=== PATIENT | female | born 1990 ===

== ENCOUNTER 2019-12-18 08:27 | Inpatient (IN) | payer SELFPAY ==
[2019-12-18] MEDS ORDERED: Methylergonovine 0.2 MG/1 ML Amp IM PRN (11:25)
[2019-12-18] MEDS ORDERED: Butorphanol 1 MG/ML SDV IVPUSH PRN (11:25)
[2019-12-18] MEDS ORDERED: Sodium Chloride 0.9% 10 ML SDV IV PRN (11:25)
[2019-12-18] MEDS ORDERED: Sodium Chloride 0.9% 10 ML Syringe FLUSH PRN (11:25)
[2019-12-18] MEDS ORDERED: Misoprostol 200 MCG Tab PO PRN (11:25)
[2019-12-18] MEDS ORDERED: Tranexamic Acid 1,000 MG in Sodium Chloride 0.9% 100 ML IV PRN (11:25)
[2019-12-18] MEDS ORDERED: Lidocaine 1% 50 ML MDV INJECT PRN (11:25)
[2019-12-18] MEDS ORDERED: Water For Irrigation,Sterile 1,000 ML Container IRR PRN (11:25)
[2019-12-18] MEDS ORDERED: Carboprost Tromethamine 250 MCG/1 ML Amp IM PRN (11:25)
[2019-12-18] MEDS ORDERED: Nalbuphine 10 MG/1 ML Vial IVPUSH PRN (11:25)
[2019-12-18] MEDS ORDERED: Terbutaline 1 MG/ML SDV SUBCUT PRN (11:25)
[2019-12-18] MEDS ORDERED: Sodium Chloride 0.9% 2.5 ML Syringe FLUSH PRN (11:25)
[2019-12-18] MEDS ORDERED: Oxytocin/0.9 % Sodium Chloride 30 UNIT/500 ML BAG IV SCH ×2 (11:30)
[2019-12-18] MEDS ORDERED: Misoprostol 25 MCG (1/4 of 100 MCG) Tab PO PRN (12:00)
[2019-12-18] MEDS: Lactated Ringers 1,000 ML IV SCH ×3 (12:32→19:33)
[2019-12-18] MEDS ORDERED: Ropivacaine 0.2% PF 2 MG/ML 20 ML SDV ONE (18:34)
[2019-12-18] MEDS ORDERED: fentaNYL 100 MCG/2 ML SDV ONE (18:34)
[2019-12-18] MEDS ORDERED: Ropivacaine HCl/PF 100 ML ONE (18:34)
[2019-12-18] MEDS ORDERED: Oxytocin/0.9 % Sodium Chloride 30 UNIT/500 ML BAG ONE (19:31)
--- NOTE | 2019-12-18 20:39 | PCM.PREANE ---
Preanesthetic Assessment - Procedure Proposed Procedure: MARY - Anesthesia/Transfusion/Family Hx Anesthesia History: Prior Anesthesia Without Reaction Family History of Anesthesia Reaction: No Transfusion History: No Prior Transfusion(s) Intubation History: Unknown - Review of Systems General: No Symptoms Pulmonary: No Symptoms Cardiovascular: No Symptoms Gastrointestinal: No Symptoms Neurological: No Symptoms Other: Reports: None - Physical Assessment NPO Status Date: 12/18/19 NPO Status Time: 18:00 (Clear Liquids) Height: 1.6 m Weight: 86.183 kg ASA Class: 2 Mental Status: Alert & Oriented x3 Airway Class: Mallampati = 2 Dentition: Reports: Normal Dentition Thyro-Mental Finger Breadths: 3 Mouth Opening Finger Breadths: 3 ROM/Head Extension: Full Lungs: Clear to Auscultation Cardiovascular: Regular Rate - Lab Values: Laboratory Last Values WBC 10.35 K/uL (4.0-11.0) 12/18/19 11:50 RBC 5.11 M/uL (4.30-5.90) 12/18/19 11:50 Hgb 15.4 g/dL (12.0-16.0) 12/18/19 11:50 Hct 45.9 % (36.0-46.0) 12/18/19 11:50 MCV 89.8 fL (80.0-98.0) 12/18/19 11:50 MCH 30.1 pg (27.0-32.0) 12/18/19 11:50 MCHC 33.6 g/dL (31.0-37.0) 12/18/19 11:50 RDW Std Deviation 46.6 fl (28.0-62.0) 12/18/19 11:50 RDW Coeff of Krista 14 % (11.0-15.0) 12/18/19 11:50 Plt Count 221 K/uL (150-400) 12/18/19 11:50 MPV 10.10 fL (7.40-12.00) 12/18/19 11:50 Nucleated RBC % 0.0 /100WBC 12/18/19 11:50 Nucleated RBCs # 0 K/uL 12/18/19 11:50 Urine Color YELLOW 12/18/19 08:45 Urine Appearance CLEAR 12/18/19 08:45 Urine pH 7.0 (5.0-8.0) 12/18/19 08:45 Ur Specific Accident 1.015 (1.001-1.035) 12/18/19 08:45 Urine Protein NEGATIVE mg/dL (NEGATIVE) 12/18/19 08:45 Urine Glucose (UA) NEGATIVE mg/dL (NEGATIVE) 12/18/19 08:45 Urine Ketones NEGATIVE mg/dL (NEGATIVE) 12/18/19 08:45 Urine Occult Blood NEGATIVE (NEGATIVE) 12/18/19 08:45 Urine Nitrite NEGATIVE (NEGATIVE) 12/18/19 08:45 Urine Bilirubin NEGATIVE (NEGATIVE) 12/18/19 08:45 Urine Urobilinogen 0.2 EU/dL (<2.0) 12/18/19 08:45 Ur Leukocyte Esterase NEGATIVE (NEGATIVE) 12/18/19 08:45 Urine RBC NONE SEEN (0-2/HPF) 12/18/19 08:45 Urine WBC 0-2 (0-5/HPF) 12/18/19 08:45 Ur Epithelial Cells FEW (NONE-FEW) 12/18/19 08:45 Urine Bacteria NOT SEEN (NEGATIVE) 12/18/19 08:45 Membrane Rupture POSITIVE 12/18/19 08:48 Blood Type O POSITIVE 12/18/19 11:50 Antibody Screen NEGATIVE 12/18/19 11:50 - Allergies Allergies/Adverse Reactions: Allergies Allergy/AdvReac Type Severity Reaction Status Date / Time Penicillins Allergy Rash Verified 12/18/19 08:57 - Blood Blood Available: No Product(s) Available: None - Anesthesia Plan Pre-Op Medication Ordered: None - Acknowledgements Anesthesia Type Planned: Epidural Pt an Appropriate Candidate for the Planned Anesthesia: No Alternatives and Risks of Anesthesia Discussed w Pt/Guardian: No Pt/Guardian Understands and Agrees with Anesthesia Plan: No Additional Comments: for MARY. MARY in past. Discussed, ? answered, permit signed, wishes to proceed. Acceptable Candidate. 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: Neurological History: Reports: Migraines Psychiatric History: Reports: Anxiety, Depression Endocrine/Metabolic History: Reports: Obesity/BMI 30+, Other (See Below) Other Endocrine/Metabolic History: Hyperactive thyroid during first trimester, resolved in second trimester - Infectious Disease History Infectious Disease History: Reports: Chicken Pox, Human Papilloma Virus (HPV) - SUBSTANCE USE Smoking Status *Q: Former Smoker Tobacco Use Within Last Twelve Months: No Second Hand Smoke Exposure: No Date of Last Drink: 12/04/19 Recreational Drug Use History: No - HOME MEDS Home Medications: Home Meds Pnv No.95/Ferrous Fum/Folic AC [ Multivitamin Tablet] 1 each PO DAILY [History] - CURRENT (IN HOUSE) MEDS Current Meds: Current Medications Butorphanol Tartrate (Stadol) 1 mg IVPUSH Q1H PRN PRN Reason: Pain Last Admin: 12/18/19 18:07 Dose: 1 mg Carboprost Tromethamine (Hemabate Ds) 250 mcg IM ASDIRECTED PRN PRN Reason: Post Hemorrhage Lactated Ringer's (Ringers, Lactated) 1,000 mls @ 150 mls/hr IV ASDIRECTED KRYSTYNA Last Admin: 12/18/19 19:33 Dose: 150 mls/hr Oxytocin/Sodium Chloride (Oxytocin 30 Unit/500 Ml-Ns) 30 unit in 500 mls @ 500 mls/hr IV ASDIRECTED KRYSTYNA Oxytocin/Sodium Chloride (Oxytocin 30 Unit/500 Ml-Ns) 30 unit in 500 mls @ 2 mls/hr IV TITRATE KRYSTYNA; Protocol Tranexamic Acid 1,000 mg/ (Sodium Chloride) 110 mls @ 660 mls/hr IV ONETIME PRN PRN Reason: Bleeding Lidocaine HCl (Xylocaine 1%) 50 ml INJECT ONETIME PRN PRN Reason: Laceration repair Methylergonovine Maleate (Methergine) 0.2 mg IM ASDIRECTED PRN PRN Reason: Post Hemorrhage Misoprostol (Cytotec) 200 mcg PO ONETIME PRN PRN Reason: Post Hemorrhage Misoprostol (Cytotec) 25 mcg PO ONETIME PRN PRN Reason: Cervical Ripening Last Admin: 12/18/19 12:32 Dose: 25 mcg Nalbuphine HCl (Nubain) 10 mg IVPUSH Q1H PRN PRN Reason: Pain (severe 7-10) Sodium Chloride (Saline Flush) 10 ml FLUSH ASDIRECTED PRN PRN Reason: Keep Vein Open Sodium Chloride (Saline Flush) 2.5 ml FLUSH ASDIRECTED PRN PRN Reason: Keep Vein Open Sodium Chloride (Normal Saline) 10 ml IV ASDIRECTED PRN PRN Reason: IV Use Sterile Water (Sterile Water For Irrigation) 1,000 ml IRR ASDIRECTED PRN PRN Reason: delivery Terbutaline Sulfate (Brethine) 0.25 mg SUBCUT ASDIRECTED PRN PRN Reason: Tacysystole Discontinued Medications Fentanyl (Sublimaze) Confirm Administered Dose 100 mcg .ROUTE .STK-MED ONE Stop: 12/18/19 18:35 Ropivacaine (Naropin 0.2%) Confirm Administered Dose 100 mls @ as directed .ROUTE .STK-MED ONE Stop: 12/18/19 18:35 Oxytocin/Sodium Chloride (Oxytocin 30 Unit/500 Ml-Ns) Confirm Administered Dose 30 unit in 500 mls @ as directed .ROUTE .STK-MED ONE Stop: 12/18/19 19:32 Ropivacaine (Naropin 0.2%) Confirm Administered Dose 20 ml .ROUTE .STK-MED ONE Stop: 12/18/19 18:35
--- NOTE | 2019-12-18 20:43 | PCM.SN.2 ---
- Free Text/Narrative Note: Requested for MARY. Discussed, permit signed. Procedure @ L3-4 on first pass without issues. Excellent analgesia. Placed on infusion with bolus. Tolerated well. No problems noted.
[2019-12-18] MEDS ORDERED: Docusate Sodium 100 MG Cap PO PRN (22:07)
[2019-12-18] MEDS ORDERED: Lanolin 100% Cream 7 GM Tube TOP PRN (22:07)
[2019-12-18] MEDS ORDERED: Bisacodyl 10 MG Supp RECTAL PRN (22:07)
[2019-12-18] MEDS ORDERED: Aluminum Hydroxide/Magnesium Hydroxide/Simethicone Susp 30 ML Cup PO PRN (22:07)
[2019-12-18] MEDS ORDERED: Benzocaine/Menthol 20%-0.5% Spray 78 GM Cannister TOP PRN (22:07)
[2019-12-18] MEDS ORDERED: Acetaminophen 500 MG Tab PO PRN (22:07)
[2019-12-18] MEDS ORDERED: Ibuprofen 800 MG Tab PO PRN (22:07)
[2019-12-18] MEDS ORDERED: Witch Hazel Medicated Pads 40/Jar TOP PRN (22:07)
[2019-12-18] MEDS ORDERED: oxyCODONE 5 MG Tab PO PRN (22:07)
[2019-12-18] MEDS ORDERED: Ibuprofen 400 MG Tab PO PRN (22:07)
--- NOTE | 2019-12-18 22:14 | PCM.OPNOTE ---
- General Post-Op/Procedure Note Date of Surgery/Procedure: 12/18/19 Operative Procedure(s): /IP Findings: Viable female APGARs 8, 9 weight 3340 gm. Spontaneous delivery intact placenta with 3V cord Pre Op Diagnosis: 37/3 week IUP. SROM Post-Op Diagnosis: Same Anesthesia Technique: Epidural Primary Surgeon: Kandi Armstrong EBL in mLs: 250 Complications: none known Condition: Stable Free Text/Narrative:: Dictation [id number]
--- NOTE | 2019-12-18 23:11 | OR ---
SURGEON: Kandi Armstrong M.D. DATE OF PROCEDURE: 12/18/2019 PREOPERATIVE DIAGNOSES: 1. A 37-3/7 weeks intrauterine . 2. Spontaneous rupture of membranes. POSTOPERATIVE DIAGNOSES: 1. A 37-3/7 weeks intrauterine . 2. Spontaneous rupture of membranes. PROCEDURE: Spontaneous vaginal delivery, intact perineum. ANESTHESIA: Epidural. ESTIMATED BLOOD LOSS: 250 mL. COMPLICATIONS: None known. FINDINGS: Viable female. scores 8 at 1 minute, 9 at 5 minutes. Weight of 3340 g. Spontaneous delivery, intact placenta, 3-vessel cord. DISPOSITION: to nursery. Mom in LDRP. PROCEDURE DETAILS: Sally is a 29-year-old G2, P1 at 37-3/7 weeks' gestational age, who presented on the morning of 12/18/2019 with leakage of fluid. She was found to be spontaneously ruptured. Clear fluid noted. Group B beta strep negative. She is admitted. Routine labs were drawn with monitoring. She began progressing in the early afternoon hours, became increasingly uncomfortable, was found to be 5 cm shortly after approximately 6 p.m. and underwent regional anesthesia in the form of epidural. She became more comfortable and continued to progress thereafter. Shortly after 8 p.m., she was found to be 9 cm and within the hour progressed to complete, 100% effaced, +1 station. I was called for delivery. Upon my arrival, the patient was placed in modified dorsal lithotomy position, was prepped and draped in the usual aseptic manner. Began pushing efforts, pushed readily to a +3 station. Continued with pushing and delivered the 's head atraumatically spontaneously, followed by anterior shoulder, posterior shoulder, remainder of body without difficulty. The infant's oropharynx and nares were bulb suctioned. Infant was handed off to her mother with attending nursing staff at her side. After a delay, cord was clamped x2 and cut. Cord arterial, cord venous, cord blood sampling was obtained. Light pressure was applied while the placenta was delivered spontaneously intact. Vigorous fundal uterine massage was then applied while 30 units of Pitocin was delivered in 500 mL of IV fluid. Upon inspection of cervix, vaginal sidewall, and perineum, these were found to be intact. Uterus remained firm. Sponge count, instrument count is correct. The patient remained in LDRP and to nursery. SOLBSAR / CLAU /[id number]
[2019-12-19] MEDS: Acetaminophen 500 MG Tab PO PRN ×2 (04:14→13:07)
--- NOTE | 2019-12-19 07:44 | PCM48HPAN ---
Post Anesthesia Note - EVALUATION WITHIN 48HRS OF ANESTHETIC Vital Signs in Normal Range: Yes Patient Participated in Evaluation: Yes Respiratory Function Stable: Yes Airway Patent: Yes Cardiovascular Function Stable: Yes Hydration Status Stable: Yes Pain Control Satisfactory: Yes Nausea and Vomiting Control Satisfactory: Yes Mental Status Recovered: Yes Vital Signs: Last Vital Signs Temp 36.2 C 12/19/19 04:43 Pulse 81 12/19/19 04:43 Resp 18 12/19/19 04:43 BP 115/55 L 12/19/19 04:43 Pulse Ox 97 12/19/19 04:43 - COMMENTS/OBSERVATIONS Free Text/Narrative:: Doing well.
--- NOTE | 2019-12-19 11:48 | PCM.PNPP ---
- General Info Date of Service: 12/19/19 Subjective Update: 29yo s/p PPD1 Functional Status: Reports: Pain Controlled, Tolerating Diet, Ambulating, Urinating - Review of Systems General: Reports: No Symptoms HEENT: Reports: No Symptoms Pulmonary: Reports: No Symptoms Cardiovascular: Reports: No Symptoms Gastrointestinal: Reports: No Symptoms Genitourinary: Reports: No Symptoms Musculoskeletal: Reports: No Symptoms Skin: Reports: No Symptoms Neurological: Reports: No Symptoms Psychiatric: Reports: No Symptoms - General Info Date of Service: 12/19/19 - Patient Data Vital Signs - Most Recent: Last Vital Signs Temp 36.2 C 12/19/19 04:43 Pulse 81 12/19/19 04:43 Resp 18 12/19/19 04:43 BP 115/55 L 12/19/19 04:43 Pulse Ox 97 12/19/19 04:43 Weight - Most Recent: 86.183 kg Lab Results - Last 24 Hours: Laboratory Results - last 24 hr 12/18/19 12/18/19 12/18/19 Range/Units 11:50 11:50 21:48 WBC 10.35 (4.0-11.0) K/uL RBC 5.11 (4.30-5.90) M/uL Hgb 15.4 (12.0-16.0) g/dL Hct 45.9 (36.0-46.0) % MCV 89.8 (80.0-98.0) fL MCH 30.1 (27.0-32.0) pg MCHC 33.6 (31.0-37.0) g/dL RDW Std Deviation 46.6 (28.0-62.0) fl RDW Coeff of Krista 14 (11.0-15.0) % Plt Count 221 (150-400) K/uL MPV 10.10 (7.40-12.00) fL Nucleated RBC % 0.0 /100WBC Nucleated RBCs # 0 K/uL Cord ABG pH 7.354 (7.18-7.38) Cord ABG Base Excess -3 (-10--2) Cord VBG pH 7.319 (7.25-7.45) Cord VBG Base Excess -4 (-10--2) Blood Type O POSITIVE Antibody Screen NEGATIVE 12/19/19 Range/Units 05:36 WBC (4.0-11.0) K/uL RBC (4.30-5.90) M/uL Hgb 13.1 (12.0-16.0) g/dL Hct 40.2 (36.0-46.0) % MCV (80.0-98.0) fL MCH (27.0-32.0) pg MCHC (31.0-37.0) g/dL RDW Std Deviation (28.0-62.0) fl RDW Coeff of Krista (11.0-15.0) % Plt Count (150-400) K/uL MPV (7.40-12.00) fL Nucleated RBC % /100WBC Nucleated RBCs # K/uL Cord ABG pH (7.18-7.38) Cord ABG Base Excess (-10--2) Cord VBG pH (7.25-7.45) Cord VBG Base Excess (-10--2) Blood Type Antibody Screen Med Orders - Current: Current Medications Acetaminophen (Tylenol Extra Strength) 500 mg PO Q4H PRN PRN Reason: Pain Last Admin: 12/19/19 04:14 Dose: 500 mg Acetaminophen (Tylenol Extra Strength) 1,000 mg PO Q4H PRN PRN Reason: Pain Al Hydroxide/Mg Hydroxide (Mag-Al Plus) 30 ml PO Q8H PRN PRN Reason: Heartburn Benzocaine/Menthol (Dermoplast Pain Relief 20%-0.5% [place]) 78 gm TOP ASDIRECTED PRN PRN Reason: Perineal Comfort Measure Bisacodyl (Dulcolax) 10 mg RECTAL ONETIME PRN PRN Reason: Constipation Carboprost Tromethamine (Hemabate Ds) 250 mcg IM ASDIRECTED PRN PRN Reason: Post Hemorrhage Docusate Sodium (Colace) 100 mg PO BID PRN PRN Reason: Constipation Emollient Ointment (Lansinoh Hpa) 0 gm TOP ASDIRECTED PRN PRN Reason: Sore Nipples Lactated Ringer's (Ringers, Lactated) 1,000 mls @ 150 mls/hr IV ASDIRECTED KRYSTYNA Last Admin: 12/18/19 19:33 Dose: 150 mls/hr Oxytocin/Sodium Chloride (Oxytocin 30 Unit/500 Ml-Ns) 30 unit in 500 mls @ 500 mls/hr IV ASDIRECTED KRYSTYNA Last Admin: 12/18/19 21:50 Dose: 500 mls/hr Oxytocin/Sodium Chloride (Oxytocin 30 Unit/500 Ml-Ns) 30 unit in 500 mls @ 2 mls/hr IV TITRATE KRYSTYNA; Protocol Tranexamic Acid 1,000 mg/ (Sodium Chloride) 110 mls @ 660 mls/hr IV ONETIME PRN PRN Reason: Bleeding Ibuprofen (Motrin) 400 mg PO Q4H PRN PRN Reason: Pain Ibuprofen (Motrin) 800 mg PO Q6H PRN PRN Reason: Pain Lidocaine HCl (Xylocaine 1%) 50 ml INJECT ONETIME PRN PRN Reason: Laceration repair Methylergonovine Maleate (Methergine) 0.2 mg IM ASDIRECTED PRN PRN Reason: Post Hemorrhage Nalbuphine HCl (Nubain) 10 mg IVPUSH Q1H PRN PRN Reason: Pain (severe 7-10) Oxycodone HCl (Oxycodone) 5 mg PO Q2H PRN PRN Reason: Pain Sodium Chloride (Saline Flush) 10 ml FLUSH ASDIRECTED PRN PRN Reason: Keep Vein Open Sodium Chloride (Saline Flush) 2.5 ml FLUSH ASDIRECTED PRN PRN Reason: Keep Vein Open Sodium Chloride (Normal Saline) 10 ml IV ASDIRECTED PRN PRN Reason: IV Use Sterile Water (Sterile Water For Irrigation) 1,000 ml IRR ASDIRECTED PRN PRN Reason: delivery Last Admin: 12/18/19 21:45 Dose: 1,000 ml Witch Adrianna (Tucks) 1 pad TOP ASDIRECTED PRN PRN Reason: comfort care Discontinued Medications Butorphanol Tartrate (Stadol) 1 mg IVPUSH Q1H PRN PRN Reason: Pain Last Admin: 12/18/19 18:07 Dose: 1 mg Fentanyl (Sublimaze) Confirm Administered Dose 100 mcg .ROUTE .STK-MED ONE Stop: 12/18/19 18:35 Last Admin: 12/19/19 09:46 Dose: Not Given Ropivacaine (Naropin 0.2%) Confirm Administered Dose 100 mls @ as directed .ROUTE .STK-MED ONE Stop: 12/18/19 18:35 Last Admin: 12/19/19 09:46 Dose: Not Given Oxytocin/Sodium Chloride (Oxytocin 30 Unit/500 Ml-Ns) Confirm Administered Dose 30 unit in 500 mls @ as directed .ROUTE .STK-MED ONE Stop: 12/18/19 19:32 Misoprostol (Cytotec) 200 mcg PO ONETIME PRN PRN Reason: Post Hemorrhage Misoprostol (Cytotec) 25 mcg PO ONETIME PRN PRN Reason: Cervical Ripening Last Admin: 12/18/19 12:32 Dose: 25 mcg Ropivacaine (Naropin 0.2%) Confirm Administered Dose 20 ml .ROUTE .STK-MED ONE Stop: 12/18/19 18:35 Last Admin: 12/19/19 09:45 Dose: Not Given Terbutaline Sulfate (Brethine) 0.25 mg SUBCUT ASDIRECTED PRN PRN Reason: Tacysystole - Infant Interaction Support Person: - Recovery Exam Fundal Tone: Firm Fundal Level: At Umbilicus Fundal Placement: Midline Lochia Amount: Scant Lochia Color: Rubra/Red Perineum Description: Intact, Minimal Bruising/Swelling Episiotomy/Laceration: None Bladder Status: Voiding Urinary Elimination: Voided - Exam General: Alert HEENT: Pupils Equal Neck: Supple Lungs: Clear to Auscultation Cardiovascular: Regular Rate, Regular Rhythm GI/Abdominal Exam: Normal Bowel Sounds Extremities: Normal Inspection Neurological: No New Focal Deficit - Problem List & Annotations (1) Vaginal delivery SNOMED Code(s): 845148148 Code(s): O80 - ENCOUNTER FOR FULL-TERM UNCOMPLICATED DELIVERY Status: Acute Current Visit: Yes - Problem List Review Problem List Initiated/Reviewed/Updated: Yes - My Orders Last 24 Hours: My Active Orders 12/18/19 11:25 Heart Tones [RC] CONTINUOUS Oxygen Therapy [RC] ASDIRECTED Vaginal Exam [RC] PRN Vaginal Exam [RC] PRN Vital Signs [RC] PER UNIT ROUTINE Carboprost Tromethamine [Hemabate DS] 250 mcg IM ASDIRECTED PRN Lidocaine 1% [Xylocaine 1%] 50 ml INJECT ONETIME PRN Methylergonovine [Methergine] 0.2 mg IM ASDIRECTED PRN Nalbuphine [Nubain] 10 mg IVPUSH Q1H PRN Sodium Chloride 0.9% [Normal Saline] 10 ml IV ASDIRECTED PRN Sodium Chloride 0.9% [Saline Flush] 10 ml FLUSH ASDIRECTED PRN Sodium Chloride 0.9% [Saline Flush] 2.5 ml FLUSH ASDIRECTED PRN Tranexamic Acid [Cyklokapron] 1,000 mg Sodium Chloride 0.9% [Normal Saline] 100 ml IV ONETIME Water For Irrigation,Sterile [Sterile Water for Irrigation] 1,000 ml IRR ASDIRECTED PRN Peripheral IV Insertion Adult [OM.PC] Routine 12/18/19 11:30 Lactated Ringers [Ringers, Lactated] 1,000 ml IV ASDIRECTED Oxytocin/0.9 % Sodium Chloride [Oxytocin 30 Unit/500 ML-NS] 30 unit in 500 ml IV ASDIRECTED Oxytocin/0.9 % Sodium Chloride [Oxytocin 30 Unit/500 ML-NS] 30 unit in 500 ml IV TITRATE Medication Administration Instruction [OM.PC] Q3H 12/18/19 11:50 RPR (SYPHILIS SERO) W/ RFLX [REF] Routine - Assessment Assessment:: 29yo S/p PPD1 , normal lochia ambulating , tolerating regular diet - Plan Plan:: Routine care Pain control as needed support as needed
== END 2019-12-19 23:05 | disposition home or self-care (01) | DRG 807 ==
LOC: MW.OB 08:27 → MW.OBCHECK 08:27 → MW.OB 11:25 → MW.OBCHECK 11:25 → OBSVTOIN 12:48 → MW.OB 23:50
PROVIDERS: ADMIT Obstetrics & Gynecology; ATTEND Obstetrics & Gynecology
PROC: 10E0XZZ Delivery of Products of Conception, External Approach (ICD-10-PCS; principal; 2019-12-18)
PROC: 3E0R3BZ Introduction of Anesthetic Agent into Spinal Canal, Percutaneous Approach (ICD-10-PCS; 2019-12-18)
PROC: 00HU33Z Insertion of Infusion Device into Spinal Canal, Percutaneous Approach (ICD-10-PCS; 2019-12-18)
DX: O42.92 Full-term premature rupture of membranes, unspecified as to length of time between rupture and onset of labor (principal); Z37.0 Single live birth; Z3A.37 37 weeks gestation of pregnancy
CPT/HCPCS: 36415; 51702; 59025; 59409; 81001; 82803; 84112; 85014; 85018; 85027; 86592; 86593; 86850; 86900; 86901; A9270-GY; J0595; J2590; J7120